=== PATIENT | male | born 1970 | race Caucasian/White ===

== ENCOUNTER 2018-06-03 19:39 | Emergency (ER) | payer OTHER ==
[2018-06-03] MEDS ORDERED: NS 1,000 ML IV ONE (20:30)
[2018-06-03] MEDS ORDERED: DEXAMETHASONE 10 MG/ML VIAL IVP ONE (20:30)
--- NOTE | 2018-06-03 21:01 | EDPHY ---
H & P Stated Complaint: dx strep 05/31, ongoing sore throat/RAMIREZ - Personal History Current Tetanus/Diphtheria Vaccine: Yes - Medical/Surgical History Hx Asthma: No Hx Chronic Respiratory Disease: No Hx Diabetes: No Hx Cardiac Disease: No Hx Renal Disease: No Hx Cirrhosis: No Hx Alcoholism: No Hx HIV/AIDS: No Hx Splenectomy or Spleen Trauma: No Other PMH: extrafetal bladder - Social History Smoking Status: Never smoked Time Seen by Provider: 06/03/18 20:21 HPI/ROS: CHIEF COMPLAINT: Continued sore throat HISTORY OF PRESENT ILLNESS: 47-year-old immunocompetent male complaining of 3 days of sore throat, diagnosed with presumptive strep pharyngitis by his PCP, was started on amoxicillin then transferred to [facility] today and also given injection of penicillin at his PCPs office and started on steroids, comes to the ER complaining of continued odynophagia. Positive cervical adenopathy No change in voice. No trismus no drooling. No nuchal rigidity. No chest pain. PRIMARY CARE PROVIDER: REVIEW OF SYSTEMS: 10 systems reviewed and negative with the exception of the elements mentioned in the history of present illness PAST MEDICAL & SURGICAL HISTORY: No pertinent medical or surgical history SOCIAL HISTORY: Nonsmoker PHYSICAL EXAM (Prior to examination, patient consented to physical exam, hands were washed and my usual and customary physical exam procedures followed) 1) GENERAL: Well-developed, well-nourished, alert and oriented. Appears to be in no acute distress. 2) HEAD: Normocephalic, atraumatic 3) HEENT: Pupils equal, round, reactive to light bilaterally. Sclera anicteric. Oropharynx: No trismus no drooling. No hot potato voice. Bilateral symmetrically enlarged, exudate of tonsils with uvula midline. No pointing of the uvula. Floor of mouth soft no evidence of Rod's angina. No hot potato voice. Ears bilaterally with normal tympanic membranes. No evidence of otitis media otitis externa 4) NECK: Full range of motion, no meningeal signs. 5) LUNGS: Clear auscultation bilaterally, no wheezes, no rhonchi, no retractions. 6) HEART: Regular rate and rhythm, no murmur, no heave, no gallop. 7) ABDOMEN: No guarding, no rebound, no focal tenderness, negative McBurney's, negative Bowens's, negative Rovsing's, negative peritoneal sign, splenomegaly 8) MUSCULOSKELETAL: Moving all extremities, no focal areas of tenderness, no obvious trauma. No peripheral edema or discoloration. 9) BACK: No CVA tenderness, no midline vertebral tenderness, no fluctuance, no step-off, no obvious trauma, no visual or palpable abnormality. 10) SKIN: No rash, no petechiae. 11) Psychiatric: Patient is oriented X 3, there is no agitation. DIFFERENTIAL DIAGNOSIS: In no particular order, my differential diagnosis includes, but is not limited to, strep pharyngitis, viral pharyngitis, peritonsillar abscess, retropharyngeal abscess or phlegmon, mononucleosis, meningitis, Lemierre syndrome. (Wilfredo Lawson) Constitutional: Initial Vital Signs Temperature (C) 36.9 C 06/03/18 19:40 Heart Rate 63 06/03/18 19:40 Respiratory Rate 18 06/03/18 19:40 Blood Pressure 150/94 H 06/03/18 19:40 O2 Sat (%) 96 06/03/18 19:40 O2 Delivery Mode Room Air Allergies/Adverse Reactions: No Known Allergies Allergy (Unverified 06/03/18 19:44) Home Medications: Medication Instructions Recorded Ibuprofen 06/03/18 Keflex 06/03/18 Harrison 5-325 Tablet 06/03/18 Medical Decision Making ED Course/Re-evaluation: 9:00 p.m.: Patient discussed peritonsillar abscess and I think that this is less than likely in this patient given his lack physical exam findings that would support this, notably no trismus no drooling, no hot potato voice, no asymmetry in the posterior oropharynx. I have recommended testing for mononucleosis and given him a the dose of Decadron as well as IV fluids. Care of patient under supervision of secondary supervising physician Dr Taylor with whom I discussed case. (Wilfredo Lawson) The patient was evaluated and managed by the physician retail loan originator assistant. I have reviewed this chart and I agree with the findings and plan of care as documented , as indicated by my signature. I am the secondary supervising physician. ( Luzma Taylor) - Data Points Medications Given: Discontinued Medications Dexamethasone (Decadron Injection) 10 mg IVP EDNOW ONE Stop: 06/03/18 20:31 Last Admin: 06/03/18 20:57 Dose: 10 mg Sodium Chloride (Ns) 1,000 mls @ 0 mls/hr IV ONCE ONE PRN Reason: Wide Open Stop: 06/03/18 20:31 Last Admin: 06/03/18 20:57 Dose: 1,000 mls Ketorolac Tromethamine (Toradol) 15 mg IVP EDNOW ONE Stop: 06/03/18 21:09 Last Admin: 06/03/18 21:11 Dose: 15 mg Departure - Departure Disposition: Home, Routine, Self-Care Clinical Impression: Sore throat Condition: Good Instructions: Uvulitis (ED) Additional Instructions: return to the ER if you develop new or worsening symptoms. Referrals: Sourav Logan MD [Medical Doctor] - 1-2 days without fail
[2018-06-03] MEDS ORDERED: KETOROLAC 15 MG/1 ML SDV IVP ONE (21:08)
[2018-06-03 22:22] VITALS: BP 140/83
== END 2018-06-03 22:22 | disposition home or self-care (01) ==
DX: R07.0 Pain in throat (principal)
CPT/HCPCS: 96374; J1100; J1885